=== PATIENT | female | born 1975 | race Caucasian/White ===

== ENCOUNTER 2020-09-04 11:48 | Emergency (ER) | payer SELFPAY ==
[~2020-09-04] VITALS: Ht 162.6 cm; Wt 92.5 kg
[2020-09-04] MEDS ORDERED: ONDANSETRON HCL 4 MG ORAL DISINTEGRATING TAB PO ONE (12:30)
[2020-09-04] MEDS ORDERED: CEFDINIR300 MG PO (12:38)
[2020-09-04] MEDS ORDERED: ONDANSETRON ODT4 MG PO (12:38)
== END 2020-09-04 13:00 | disposition home or self-care (01) ==
LOC: FSED 12:22
DX: J01.90 Acute sinusitis, unspecified (principal); B34.9 Viral infection, unspecified; R11.2 Nausea with vomiting, unspecified
CPT/HCPCS: 99283; Q0162

== ENCOUNTER 2021-09-10 20:44 | Emergency (ER) | payer BC ==
[~2021-09-10] VITALS: Ht 165.1 cm; Wt 92.5 kg
[~2021-09-10 20:44] MED LIST: CEFDINIR300 MG PO; ONDANSETRON ODT4 MG PO
[2021-09-10] MEDS ORDERED: ALBUTEROL/IPRATROPIUM 3 ML NEB NEB ONE (21:45)
[2021-09-10] MEDS ORDERED: ALBUTEROL/IPRATROPIUM 3 ML NEB ONE (21:55)
[2021-09-10] MEDS ORDERED: AZITHROMYCIN250 MG PO (23:27)
[2021-09-10] MEDS ORDERED: PROVENTIL HFA6.7 GM INH (23:27)
[2021-09-10] MEDS ORDERED: NAPROSYN500 MG PO (23:28)
== END 2021-09-10 23:58 | disposition home or self-care (01) ==
LOC: FSED 20:54
DX: J20.9 Acute bronchitis, unspecified (principal); R51.9 Headache, unspecified; J45.909 Unspecified asthma, uncomplicated; Z88.6 Allergy status to analgesic agent; Z79.899 Other long term (current) drug therapy
CPT/HCPCS: 71046; 99283

== ENCOUNTER 2024-09-28 12:14 | Emergency (ER) | payer BC ==
[~2024-09-28] VITALS: Ht 162.6 cm; Wt 93.4 kg
[~2024-09-28 12:14] MED LIST changes: +AZITHROMYCIN250 MG PO; +BENZONATATE100 MG PO; +NAPROSYN500 MG PO; +PROVENTIL HFA6.7 GM INH; +TAMIFLU6 MG/1 ML PO
[2024-09-28] MEDS: IBUPROFEN 600 MG TAB PO STA (13:56)
[2024-09-28 15:36] VITALS: PULSE 67; RESP 18; TEMP 97.7; O2SAT 96
== END 2024-09-28 15:38 | disposition home or self-care (01) ==
LOC: FSED 13:39
DX: M54.2 Cervicalgia (principal); M54.50 Low back pain, unspecified; V43.51XA Car driver injured in collision with sport utility vehicle in traffic accident, initial encounter; Y92.488 Other paved roadways as the place of occurrence of the external cause; J45.909 Unspecified asthma, uncomplicated
CPT/HCPCS: 72125; 72131; 99284